=== PATIENT | female | born 1975 | race Caucasian/White ===

== ENCOUNTER 2017-11-06 15:13 | Emergency (ER) | payer OTHER, MEDICAID ==
[2017-11-06] MEDS ORDERED: FENTANYL CITRATE INJ/PF 100 MCG/2 ML AMPUL IV ONE (15:23)
--- NOTE | 2017-11-06 15:25 | ER Document Report ---
ED Medical Screen (RME) - General Chief Complaint: Possible Kidney Stone Stated Complaint: BACK PAIN Time Seen by Provider: 11/06/17 15:22 Notes: RME DISCLOSURE I have seen this patient as part of a Rapid Medical Evaluation and, if applicable, placed any initially appropriate orders. The patient will be seen and fully evaluated, including a full history and physical exam, by a provider ( in Main ED or Fast Track) when a room becomes available. 42-year-old female PMH large ovarian cysts requiring cystectomy here with complaints of right lower quadrant and back pain that started 3 days ago with some nausea as well as vomiting. She has had some slight vaginal discharge and bleeding. She has a history of ovarian cyst requiring removal and the largest one was about 9-10 cm. She feels as though this may be her ovarian cysts acting up EXAM Mild left lower quadrant tenderness Moderate right lower quadrant tenderness TRAVEL OUTSIDE OF THE [place] IN LAST 30 DAYS: No - Related Data Allergies/Adverse Reactions: No Known Allergies Allergy (Verified 11/06/17 15:14) Past Medical History Renal/ Medical History: Reports: Hx Kidney Stones. Denies: Hx Peritoneal Dialysis Psychiatric Medical History: Reports: Hx Depression Past Surgical History: Reports: Hx Appendectomy, Hx Gynecologic Surgery - D&C, Hx Hysterectomy, Hx Oral Surgery - Immunizations Immunizations up to date: Yes Hx Diphtheria, Pertussis, Tetanus Vaccination: Yes Physical Exam - Vital signs Vitals: Temp Pulse Resp BP Pulse Ox 97.7 F 94 16 97/51 L 99 11/06/17 15:19 11/06/17 15:19 11/06/17 15:19 11/06/17 15:19 11/06/17 15:19 Course - Vital Signs Vital signs: Temp Pulse Resp BP Pulse Ox 97.7 F 94 16 97/51 L 99 11/06/17 15:19 11/06/17 15:19 11/06/17 15:19 11/06/17 15:19 11/06/17 15:19
--- NOTE | 2017-11-06 15:36 | ER Document Report ---
ED Medical Screen (RME) - General Chief Complaint: Possible Kidney Stone Stated Complaint: BACK PAIN Time Seen by Provider: 11/06/17 15:22 Mode of Arrival: Wheelchair Information source: Patient Notes: Patient presents complaining of low back pain for the past 2 days. Patient denies any fever or injuries. Patient reports a history kidney stones and suspects the same today. Patient complains of lower back pain. No nausea, vomiting or diarrhea. hx: Kidney stones, chronic back pain, PTSD, depression, hysterectomy TRAVEL OUTSIDE OF THE [place] IN LAST 30 DAYS: No - Related Data Allergies/Adverse Reactions: No Known Allergies Allergy (Verified 11/06/17 15:14) Past Medical History - Social History Chew tobacco use (# tins/day): No Frequency of alcohol use: Rare Drug Abuse: None Renal/ Medical History: Reports: Hx Kidney Stones. Denies: Hx Peritoneal Dialysis Psychiatric Medical History: Reports: Hx Depression Past Surgical History: Reports: Hx Appendectomy, Hx Gynecologic Surgery - D&C, Hx Hysterectomy, Hx Oral Surgery - Immunizations Immunizations up to date: Yes Hx Diphtheria, Pertussis, Tetanus Vaccination: Yes Physical Exam - Vital signs Vitals: Temp Pulse Resp BP Pulse Ox 97.7 F 94 16 97/51 L 99 11/06/17 15:19 11/06/17 15:19 11/06/17 15:19 11/06/17 15:19 11/06/17 15:19 - Back Back: Tender - Lumbar paraspinal tenderness. No: CVA tenderness Course - Vital Signs Vital signs: Temp Pulse Resp BP Pulse Ox 97.7 F 94 16 97/51 L 99 11/06/17 15:19 11/06/17 15:19 11/06/17 15:19 11/06/17 15:19 11/06/17 15:19
--- NOTE | 2017-11-06 16:36 | ER Document Report ---
ED GI/ - General Chief Complaint: Possible Kidney Stone Stated Complaint: BACK PAIN Time Seen by Provider: 11/06/17 15:22 Mode of Arrival: Wheelchair Information source: Patient Notes: 22-year-old female presents to ED for complaint of low back pain for 2 days. She states she has a history of kidney stones and has suspects that she has the same now. She denies any nausea vomiting or any burning frequency or urgency with urination. She denies any fever or diarrhea. TRAVEL OUTSIDE OF THE [place] IN LAST 30 DAYS: No - HPI Patient complains to provider of: Other - Low back pain Onset: Other - 2 days Timing/Duration: Gradual, Worse Quality of pain: Sharp, Throbbing Severity at maximum: Severe Severity in ED: Severe Pain Level: 5 Location: Left flank, Right flank, Low back Vaginal bleeding (Compared to normal period): None Associated symptoms: denies: Nausea, Urinary hesitancy, Urinary frequency, Urinary retention, Urinary urgency, Vomiting Exacerbated by: Movement, Walking Relieved by: Denies Similar symptoms previously: Yes Recently seen / treated by doctor: No - Related Data Allergies/Adverse Reactions: No Known Allergies Allergy (Verified 11/06/17 15:14) Past Medical History - General Information source: Patient - Social History Smoking Status: Current Every Day Smoker Cigarette use (# per day): Yes - Pack per day Chew tobacco use (# tins/day): No Smoking Education Provided: Yes - 4 Minutes Frequency of alcohol use: Rare Drug Abuse: None Occupation: None Lives with: Family Family History: None Patient has suicidal ideation: No Patient has homicidal ideation: No EENT Medical History: Reports: None Neurological Medical History: Reports: None Endocrine Medical History: Reports: None Renal/ Medical History: Reports: Hx Kidney Stones Malignancy Medical History: Reports: None GI Medical History: Reports: None Musculoskeltal Medical History: Reports Hx Arthritis Psychiatric Medical History: Reports: Hx Depression, Hx Post Traumatic Stress Disorder Traumatic Medical History: Reports: None Infectious Medical History: Reports: None Past Surgical History: Reports: Hx Appendectomy, Hx Gynecologic Surgery - D&C, Hx Hysterectomy, Hx Oral Surgery - Immunizations Immunizations up to date: Yes Hx Diphtheria, Pertussis, Tetanus Vaccination: Yes Review of Systems - Review of Systems Notes: Constitutional: [PRESENT: as per HPI. ABSENT: chills, fever(s), headache(s), weight gain, weight loss] Eyes: [ABSENT: visual disturbances] Ears: [ABSENT: hearing changes] Cardiovascular: [ABSENT: chest pain, dyspnea on exertion, edema, orthropnea, palpitations] Respiratory: [ABSENT: cough, hemoptysis] Gastrointestinal: [ABSENT: abdominal pain, constipation, diarrhea, hematemesis, hematochezia, nausea, vomiting] Genitourinary: [ABSENT: dysuria, hematuria] Musculoskeletal: Back pain from rib cage down to the buttocks Integumentary: [ABSENT: rash, wounds] Neurological: [ABSENT: abnormal gait, abnormal speech, confusion, dizziness, focal weakness, syncope] Psychiatric: [ABSENT: anxiety, depression, homicidal ideation, suicidal ideation ] Endocrine: [ABSENT: cold intolerance, heat intolerance, menstrual abnormalities , polydipsia, polyuria] Hematologic/Lymphatic: [ABSENT: easy bleeding, easy bruising, lymphadenopathy] Physical Exam - Vital signs Vitals: Temp Pulse Resp BP Pulse Ox 97.7 F 94 16 97/51 L 99 11/06/17 15:19 11/06/17 15:19 11/06/17 15:19 11/06/17 15:19 11/06/17 15:19 - Notes Notes: PHYSICAL EXAMINATION: GENERAL: Well-appearing, well-nourished and in no acute distress. HEAD: Atraumatic, normocephalic. EYES: Pupils equal round and reactive to light, extraocular movements intact, conjunctiva are normal. ENT: Nares patent, oropharynx clear without exudates. Moist mucous membranes. NECK: Normal range of motion, supple without lymphadenopathy LUNGS: Breath sounds clear to auscultation bilaterally and equal. No wheezes rales or rhonchi. HEART: Regular rate and rhythm without murmurs ABDOMEN: Soft, nontender, nondistended abdomen. No guarding, no rebound. No masses appreciated. Female : deferred Musculoskeletal: Tenderness to back from rib cage down to buttocks. Specific area of tenderness. Pain is not limited to the CVA. NEUROLOGICAL: Cranial nerves grossly intact. Normal speech, normal gait. Normal sensory, motor exams PSYCH: Normal mood, normal affect. SKIN: Warm, Dry, normal turgor, no rashes or lesions noted. Course - Re-evaluation Re-evalutation: 11/07/17 02:03 Labs and x-ray discussed with patient. Patient was instructed that there was no acute changes to her back and that the stone was not in the ureter but was an actual kidney. Patient was instructed to follow-up with her primary doctor before being discharged. Patient and family verbalized understanding of instructions. - Vital Signs Vital signs: Temp Pulse Resp BP Pulse Ox 97.7 F 81 18 105/60 100 11/06/17 15:19 11/06/17 20:04 11/06/17 20:04 11/06/17 20:04 11/06/17 20:04 - Laboratory Result Diagrams: 11/06/17 16:30 11/06/17 18:04 Laboratory results interpreted by me: 11/06/17 11/06/17 16:40 18:04 Anion Gap 3 L BUN 6 L Total Protein 5.3 L Albumin 2.8 L Urine Urobilinogen 2.0 H - Diagnostic Test Radiology reviewed: Image reviewed, Reports reviewed Discharge - Discharge Clinical Impression: Low back pain Qualifiers: Chronicity: chronic Back pain laterality: bilateral Sciatica presence: without sciatica Qualified Code(s): M54.5 - Low back pain Condition: Stable Disposition: HOME, SELF-CARE Instructions: Family Physicians / Practices Additional Instructions: LOW BACK PAIN: Three out of every four people will have an episode of disabling back pain during their lifetime. Most commonly the pain is due to straining of the muscles and ligaments in the low back. Usual treatment includes: (1) Rest on a firm surface. Avoid lying on your stomach. (2) Ice pack the painful area. After a few days, gentle heat may be used intermittently to relax the area, or ice packs can be continued. (3) Medication may be needed -- muscle relaxers and antiinflammatory medicines are commonly used. (4) As the back improves, exercises are prescribed to strengthen the back and abdominal muscles. Your doctor will advise you on the proper care for your back at each stage in your recovery. You may be better in a few days -- or healing may take several weeks. If new symptoms of a "herniated disc" (radiation of pain, numbness, or tingling down the back of the leg or weakness in the leg) occur, you should be re-examined. Further testing may be necessary. Stretching Exercises for the Back The physician has recommended that you begin stretching exercises for your back. These are often used even while the back is painful. However, you should notify the physician if the activities seem to increase your pain. PELVIC TILT: Lie flat on your back with knees bent. Tighten your stomach and buttock muscles so it flattens your lower back against the floor. Hold 10 seconds. Repeat 10 times, twice daily. KNEE RAISE: Lying on the back with knees bent, raise one knee to your chest, then the other. Hold both knees against the chest 10 seconds, then lower one knee at a time. Repeat 10 times, twice daily. PARTIAL TRUNK RAISE: Lie face down, arms at your sides. Keeping your waist on the floor, use your arms raise your chest up. Support yourself on your elbows for 30 seconds. Repeat twice daily, increasing the time to two minutes as you recover. ICE PACKS: Apply ice packs frequently against the painful area. Many different schedules are recommended, such as "20 minutes on, 20 minutes off" or "one hour ice, two hours rest." If you need to work, you may need to go longer between ice treatments. You should plan to have the area ice packed AT LEAST one fourth of the time. The ice should be applied over the wrap, tape, or splint, or over a layer of cloth -- not directly against the skin. Some ice bags have a built-in cloth and can be put directly on the skin. WARM PACKS: After approximately two days, apply gentle heat (such as a heating pad or hot water bottle) for about 20 to 30 minutes about every two hours -- at least four times daily. Warmth and elevation will help you make a more rapid recovery , and will ease the pain considerably. Do not use HOT heat, and never apply heat for longer than 30 minutes. The continuous heat can invisibly damage skin and muscles -- even when no burn is seen on the surface. Damaged muscles can make you MORE sore. FOLLOW-UP CARE: If you have been referred to a physician for follow-up care, call the physician s office for an appointment as you were instructed or within the next two days. If you experience worsening or a significant change in your symptoms, notify the physician immediately or return to the Emergency Department at any time for re-evaluation. Forms: Smoking Cessation Education
[2017-11-06] MEDS ORDERED: NORMAL SALINE 1000 ML 1,000 ML IV ONE (16:37)
[2017-11-06 16:46] LABS: ABSOLUTE EOSINOPHILS # (AUTO) 0.3 10^3/uL (0.0-0.6); ABSOLUTE LYMPHOCYTES (AUTO) 2.8 10^3/uL (0.5-4.7); ABSOLUTE MONOCYTES (AUTO) 0.9 10^3/uL (0.1-1.4); ABSOLUTE NEUT (AUTO) 5.3 10^3/uL (1.7-8.2); BASOPHILS % (AUTO) 0.4 % (0-2); EOSINOPHILS % (AUTO) 2.9 % (0-6); HEMATOCRIT 39.5 % (36.0-47.0); HEMOGLOBIN 13.4 g/dL (12.0-15.5); LYMPHOCYTES % (AUTO) 29.6 % (13-45); MEAN CORPUSCULAR VOLUME 85 fl (80-97); MONOCYTES % (AUTO) 9.8 % (3-13); PLATELET COUNT 305 10^3/uL (150-450); RED BLOOD COUNT 4.63 10^6/uL (3.72-5.28); RED CELL DISTRIBUTION WIDTH 13.8 % (11.5-14.0); SEGMENTED NEUTROPHILS % (AUTO) 57.3 % (42-78); TOTAL CELLS COUNTED % (AUTO) 100 %; WHITE BLOOD COUNT 9.3 10^3/uL (4.0-10.5)
[2017-11-06 17:18] LABS: APPEARANCE,URINE CLOUDY; BILIRUBIN,URINE NEGATIVE (NEGATIVE); COLOR,URINE YELLOW; GLUCOSE, URINE NEGATIVE (NEGATIVE); KETONES,URINE NEGATIVE (NEGATIVE); LEUKOCYTE ESTERASE,URINE NEGATIVE (NEGATIVE); NITRITE,URINE NEGATIVE (NEGATIVE); PROTEIN,URINE NEGATIVE (NEGATIVE); URINE SPECIFIC GRAVITY 1.019
--- NOTE | 2017-11-06 17:24 | RADIOLOGY REPORT (SQ) ---
EXAM DESCRIPTION: CT LTD RENAL STONE PROTOCOL ON COMPLETED DATE/TIME: 11/06/2017 5:08 pm REASON FOR STUDY: back pain with hx of kidney stone COMPARISON: 05/01/2017 TECHNIQUE: CT scan of the abdomen and pelvis performed without intravenous or oral contrast. Images reviewed with lung, soft tissue, and bone windows. Reconstructed coronal and sagittal MPR images revi ewed. All images stored on PACS. All CT scanners at this facility use dose modulation, iterative reconstruction, and/or weight based d osing when appropriate to reduce radiation dose to as low as reasonably achievable (ALARA). [facility]: Dose Right [facility]: CareDose [facility]: Dose Right [facility]: Teradose 4D [facility]: [employer] RADIATION DOSE: CT Rad equipment meets quality standard of care and radiation dose reduction techniq ues were employed. CTDIvol: 12.1 mGy. DLP: 756 mGy-cm.mGy. LIMITATIONS: None. FINDINGS: LOWER CHEST: No significant findings. No nodules or infiltrates. NON-CONTRASTED LIVER, SPLEEN, ADRENALS: The liver and adrenals are normal. The spleen is prominent. PANCREAS: No masses. No peripancreatic inflammatory changes. GALLBLADDER: The gallbladder is contracted. No stones are seen. RIGHT KIDNEY AND URETER: No suspicious masses. Assessment limited by lack of IV contrast. There is a stable prominent calcification in the midportion of the kidney, possibly calcification in a calycea l diverticulum. No hydronephrosis or hydroureter. LEFT KIDNEY AND URETER: No suspicious masses. Assessment limited by lack of IV contrast. No signifi cant calcifications. No hydronephrosis or hydroureter. AORTA AND RETROPERITONEUM: No aneurysm. No retroperitoneal masses or adenopathy. BOWEL AND PERITONEAL CAVITY: No obvious masses or inflammatory changes. No free fluid. APPENDIX: Surgically absent. PELVIS, BLADDER, AND ABDOMINAL WALL:Urinary bladder is normal. Uterus is absent. BONES: Mild lumbar scoliosis. No acute abnormality. OTHER: No other significant finding. IMPRESSION: 1. The spleen is prominent but not grossly enlarged. 2. There is stable prominent calcification in the mid right kidney as described. 3. Mild scoliosis. COMMENT: Quality ID # [id number]: Final reports with documentation of one or more dose reduction techniques (e.g., Automated exposure control, adjustment of the mA and/or kV according to patient size, use of iterative reconstruction technique) TECHNICAL DOCUMENTATION: JOB ID: [id number] [employer]- All Rights Reserved Reading location - IP/workstation name: [email or web address]
[2017-11-06 18:46] LABS: BLOOD UREA NITROGEN 6 mg/dL (7-20); CALCIUM 8.5 mg/dL (8.4-10.2); GLUCOSE 100 mg/dL (75-110); POTASSIUM 4.8 mmol/L (3.6-5.0)
[2017-11-06 18:47] LABS: ALANINE AMINOTRANSFERASE 28 U/L (9-52); ALBUMIN 2.8 g/dL (3.5-5.0); ALKALINE PHOSPHATASE 45 U/L (38-126); ASPARTATE AMINO TRANSFERASE 14 U/L (14-36); BILIRUBIN,DIRECT 0.2 mg/dL (0.0-0.4); BILIRUBIN,TOTAL 0.2 mg/dL (0.2-1.3); TOTAL PROTEIN 5.3 g/dL (6.3-8.2)
[2017-11-06 18:52] LABS: CARBON DIOXIDE 29 mmol/L (22-30); CHLORIDE 105 mmol/L (98-107); SODIUM 137.3 mmol/L (137-145)
[2017-11-06 18:55] LABS: ANION GAP 3 (5-19)
[2017-11-06 20:30] VITALS: BP 105/60
== END 2017-11-06 20:30 | disposition home or self-care (01) ==
LOC: ER 15:13
DX: M54.5 Low back pain (principal); M54.9 Dorsalgia, unspecified; F17.210 Nicotine dependence, cigarettes, uncomplicated
CPT/HCPCS: 99406; 99284; 96361; 96374; 36415; 85025; 80053; 81001; 76380; J3010; J7030

== ENCOUNTER 2017-12-04 19:53 | Emergency (ER) | payer OTHER, MEDICAID ==
[2017-12-04] MEDS ORDERED: SULFAMETHOXAZOLE/TRIMETHOPRIM 800-160 MG TABLET PO ONE (21:23)
[2017-12-04] MEDS ORDERED: IBUPROFEN 600 MG TABLET PO ONE (21:23)
[2017-12-04] MEDS ORDERED: CEPHALEXIN 500 MG CAPSULE PO ONE (21:23)
--- NOTE | 2017-12-04 21:35 | ER Document Report ---
ED Extremity Problem, Lower - General Chief Complaint: Foot Injury Stated Complaint: RIGHT FOOT LACERATION Time Seen by Provider: 12/04/17 20:36 Mode of Arrival: Ambulatory Information source: Patient TRAVEL OUTSIDE OF THE [place] IN LAST 30 DAYS: No - HPI Patient complains to provider of: Injury Location: Foot Notes: Patient is here with complaints of right foot pain and redness with swelling for the last 24 hours. Proximally 5 days ago she stepped on a piece of glass while barefoot. She states that she was able to pull the piece of glass out of the bottom of her foot. Been doing fine until yesterday when she started to have pain and redness. There is been no drainage. She denies any fevers. She denies any nausea, vomiting, diarrhea. She denies any chronic medical conditions, immunosuppression, HIV, diabetes. Pain is worse with touching the area or walking. She denies any other rashes. No chest pain or shortness of breath. No numbness, tingling, weakness. She denies any other complaints at this time. - Related Data Allergies/Adverse Reactions: No Known Allergies Allergy (Verified 11/06/17 15:14) Past Medical History - Social History Smoking Status: Current Every Day Smoker Chew tobacco use (# tins/day): No Frequency of alcohol use: Occasional Drug Abuse: None Family History: None Patient has suicidal ideation: No Patient has homicidal ideation: No Renal/ Medical History: Reports: Hx Kidney Stones. Denies: Hx Peritoneal Dialysis Musculoskeltal Medical History: Reports Hx Arthritis Psychiatric Medical History: Reports: Hx Depression, Hx Post Traumatic Stress Disorder Past Surgical History: Reports: Hx Appendectomy, Hx Gynecologic Surgery - D&C, Hx Hysterectomy, Hx Oral Surgery - Immunizations Immunizations up to date: Yes Hx Diphtheria, Pertussis, Tetanus Vaccination: Yes Review of Systems - Review of Systems -: Yes All other systems reviewed and negative Physical Exam - Vital signs Vitals: Temp Pulse Resp BP Pulse Ox 97.9 F 83 18 112/65 98 12/04/17 20:06 12/04/17 20:06 12/04/17 20:06 12/04/17 20:06 12/04/17 20:06 - Notes Notes: GENERAL: alert, cooperative, nontoxic, no distress. HEAD: normocephalic, atraumatic EYES: conjunctiva pink without discharge, no external redness or swelling. EARS: no external swelling, no external redness NOSE: atraumatic, no external swelling MOUTH/THROAT: mucous membranes moist and pink NECK: soft, supple, full range of motion, no meningismus. CHEST: no distress, lungs clear and equal throughout. No wheezing, rales, rhonchi. CARDIAC: regular rate and rhythm, no murmur, normal capillary refill, normal pulses. BACK: full range of motion, no CVA tenderness. EXTREMITIES: full range of motion of all extremities. Healed puncture wound to the heel of the right foot. Mild tenderness to palpation of this area. No foreign body identified. There is mild swelling with redness and streaking up the medial aspect of the right foot. It does not go past the ankle. There is no redness or swelling to the right leg. Normal pulse and sensation. No drainable abscess identified at this time. Normal cap refill. NEURO: alert and oriented 3, no focal deficits, full range of motion of all extremities. PYSCH: appropriate mood, affect. Patient is cooperative. SKIN: pink, warm, dry, no rash. Course - Re-evaluation Re-evalutation: 12/04/17 23:33 Patient is nontoxic appearing with stable vitals. The patient stepped on a piece of glass approximately 5 days ago and now has redness and swelling with pain to the right heel and medial foot. I do not appreciate any obvious abscess. X-ray shows no obvious opaque foreign body. Explained to the patient that there is the possibility there could still be a foreign body that is not picked up on x-ray. Due to the redness I also concerned that she potentially could have an abscess. Therefore I have performed an I&D to assess for foreign body and also assess for purulent drainage. I did not find an obvious foreign body and there was no pus removed from the wound. Patient was given Bactrim and Keflex as well as pain medication here in the emergency department. She will be discharged home with prescriptions for Bactrim Keflex and [place]. She is instructed to soak her foot in warm water. Follow-up for increasing pain, fever, increasing redness, drainage or for any further concerns. There is no signs of DVT or necrotizing fasciitis. Compartments are soft. Normal neurovascular exam to the foot. The patient's emergency department workup and current diagnosis were explained to the patient and or family. Follow-up instructions were provided. Medications if prescribed were discussed. Instructions for when to return to the emergency department including specific worrisome symptoms were discussed with the patient and/or family. - Vital Signs Vital signs: Temp Pulse Resp BP Pulse Ox 97.9 F 83 18 112/65 98 12/04/17 20:06 12/04/17 20:06 12/04/17 20:06 12/04/17 20:06 12/04/17 20:06 - Diagnostic Test Radiology reviewed: Image reviewed, Reports reviewed - Right foot x-ray with no acute fractures or obvious foreign body. Discharge - Discharge Clinical Impression: Cellulitis of foot Condition: Stable Disposition: HOME, SELF-CARE Instructions: Cellulitis ([facility]), Foreign Body ([facility]), Retained Subcutaneous Foreign Object ([facility]) Additional Instructions: Take medications as prescribed. Soak your foot in warm soapy water. Follow-up if not improving in the next 3 days, sooner for increasing pain, fever, increasing redness, drainage, numbness, tingling, weakness, any further concerns. There was no obvious foreign body identified on today's exam, it is still possible that a small foreign body that is not seen on x-ray could still be in place. It is important for you to follow-up if symptoms do not improve. The medication you were prescribed today may cause drowsiness. Do not drive or operate heavy machinery while taking this medication. Prescriptions: Cephalexin Monohydrate [Keflex 500 mg Capsule] 500 mg PO Q6H #40 capsule Hydrocodone/Acetaminophen [[place] 5-325 mg Tablet] 2 tab PO Q6H PRN #12 tab PRN Reason: Sulfamethoxazole/Trimethoprim [Bactrim Ds Tablet] 1 each PO BID #20 tablet Forms: Smoking Cessation Education
--- NOTE | 2017-12-04 21:56 | RADIOLOGY REPORT (SQ) ---
EXAM DESCRIPTION: FOOT RIGHT COMPLETE COMPLETED DATE/TIME: 12/04/2017 9:06 pm REASON FOR STUDY: stepped on glass COMPARISON: None. NUMBER OF VIEWS: Three views. TECHNIQUE: AP, lateral and oblique radiographic images acquired of the right foot. LIMITATIONS: None. FINDINGS: MINERALIZATION: Normal. BONES: No acute fracture or dislocation. No worrisome bone lesions. JOINTS: No effusions. SOFT TISSUES: No soft tissue swelling. No radiopaque foreign body. OTHER: No other significant finding. IMPRESSION: No fracture or radiopaque foreign body. TECHNICAL DOCUMENTATION: JOB ID: [id number] [employer]- All Rights Reserved Reading location - IP/workstation name: [email or web address]
[2017-12-04] MEDS ORDERED: HYDROCODONE/ACETAMINOPHEN 5-325 MG TABLET PO ONE (22:23)
[2017-12-04 23:47] VITALS: BP 109/61
== END 2017-12-04 23:47 | disposition home or self-care (01) ==
LOC: ER 19:53
DX: L03.115 Cellulitis of right lower limb (principal); F17.200 Nicotine dependence, unspecified, uncomplicated; Z87.442 Personal history of urinary calculi; Z90.710 Acquired absence of both cervix and uterus
CPT/HCPCS: 99283

== ENCOUNTER 2018-02-11 21:49 | Emergency (ER) | payer MEDICAID ==
[2018-02-11 22:00] VITALS: BP 104/67
[2018-02-11] MEDS ORDERED: LIDOCAINE 1% INJ-PF (10 MG/ML) 30 ML SDV INJ ONE (23:44)
--- NOTE | 2018-02-11 23:49 | ER Document Report ---
HPI - HPI Pain Level: 5 Notes: Patient is a 42-year-old female with no significant past medical history who presents to the ED complaining of a possible abscess to her right axilla times 1 week. Patient states that she was able to get some purulent fluid out of it couple days ago. Patient states that she has noticed that has been getting larger and more painful. Pain does not radiate. She still eating and drinking without difficulties. Patient does shave in that area. Denies any history of MRSA. Denies any drug allergies. Denies any headache, fever, neck pain, URI, sore throat, chest pain, palpitations, syncope, cough, shortness of breath, wheeze, dyspnea, abdominal pain, nausea/vomiting/diarrhea, dysuria, hematuria. - ROS Systems Reviewed and Negative: Yes All other systems reviewed and negative - REPRODUCTIVE Reproductive: DENIES: : Past Medical History - Social History Smoking Status: Unknown if Ever Smoked Family History: None Renal/ Medical History: Reports: Hx Kidney Stones. Denies: Hx Peritoneal Dialysis Musculoskeltal Medical History: Reports Hx Arthritis Psychiatric Medical History: Reports: Hx Depression, Hx Post Traumatic Stress Disorder Past Surgical History: Reports: Hx Appendectomy, Hx Gynecologic Surgery - D&C, Hx Hysterectomy, Hx Oral Surgery - Immunizations Immunizations up to date: Yes Hx Diphtheria, Pertussis, Tetanus Vaccination: Yes Vertical Provider Document - CONSTITUTIONAL Agree With Documented VS: Yes Notes: PHYSICAL EXAMINATION: GENERAL: Well-appearing, well-nourished and in no acute distress. LUNGS: Breath sounds clear to auscultation bilaterally and equal. No wheezes rales or rhonchi. HEART: Regular rate and rhythm without murmurs, rubs, gallops. Musculoskeletal: Rt arm: FROM to passive/active. Strength 5+/5. N/V intact distal. No bony tenderness. Extremities: No cyanosis, clubbing, or edema b/l. Peripheral pulses 2+. Capillary refill less than 3 seconds. NEUROLOGICAL: Normal speech, normal gait. Normal sensory, motor exams PSYCH: Normal mood, normal affect. SKIN: Rt axilla: + induration and tenderness approx 3"x2" area with surrounding erythema. Minimal fluctance to palpation. No streaks or purulence. - INFECTION CONTROL TRAVEL OUTSIDE OF THE [place] IN LAST 30 DAYS: No Course - Re-evaluation Re-evalutation: 02/12/18 00:40 Patient is an afebrile, well-hydrated, 42-year-old female who presents to the ED with an abscess/cellulitis to her right axilla. Vitals are acceptable. PE is otherwise unremarkable. I&D was performed successfully without any complications. Patient tolerated procedure well without any complications. Wound culture was obtained. Wound dressing was placed and wound instructions reviewed. No other labs or imaging warranted at this time based on H&P. Patient has no significant tachycardia, tachypnea, or hypoxia. First dose of Bactrim and Keflex given p.o. today. Patient is nontoxic-appearing. Patient does not have the symptomatology or presentation consistent for sepsis, necrotizing fasciitis, or other systemic emergent condition at this time. I will send her home with prescription for Keflex and Bactrim as well. Recheck with your PCM in 2-3 days. Return to the ED with any worsening/concerning symptoms otherwise as reviewed discharge. Patient is in agreement. - Vital Signs Vital signs: Temp Pulse Resp BP Pulse Ox 98.3 F 105 H 16 104/67 93 02/11/18 21:58 02/11/18 21:58 02/11/18 21:58 02/11/18 21:58 02/11/18 21:58 Procedures - Incision and Drainage Right Arm Time completed: 00:35 - pt tolerated proc well, no complications, wound cx obtained Type: Simple Anesthetic type: 1% Lidocaine mL's of anesthetic: 8 Blade size: 11 I&D procedure: Iodoform packing placed, Sterile dressing applied, Other - chlorhexadine/saline Incision Method: Incision made by scalpel Amount/type of drainage: small purulent/bloody Discharge - Discharge Clinical Impression: Abscess, Cellulitis of axilla, right Condition: Stable Disposition: HOME, SELF-CARE Instructions: Post Incision and Drainage, Cephalexin ([facility]), Trimethoprim-Sulfa ([facility]), Abscess ([facility]) Additional Instructions: Do not shower or bathe for 24 hours. After 24 hours she may shower but no submersion of the wound under water. Keep the original dressing on the wound for 24 hours unless the drainage soaks through. Change the dressing daily thereafter and use a small amount of triple antibiotic ointment over the open wound. Return to the ED and/or your PCM in 2-3 days for recheck and continue direction for wound packing. Monitor for any signs of worsening pain or redness , streaks, and/or fever. Return to the ED if noticing any of the above symptoms or as needed. Take medications as directed. Prescriptions: Cephalexin Monohydrate [Keflex 500 mg Capsule] 500 mg PO BID #20 capsule Sulfamethoxazole/Trimethoprim [Bactrim Ds Tablet] 1 each PO BID #20 tablet Referrals: ROSELIA BROWN, [facility] [Primary Care Provider] - 02/15/18
[2018-02-12] MEDS ORDERED: CEPHALEXIN 500 MG CAPSULE PO ONE (00:43)
[2018-02-12] MEDS ORDERED: SULFAMETHOXAZOLE/TRIMETHOPRIM 800-160 MG TABLET PO ONE (00:43)
[2018-02-12] MEDS ORDERED: HYDROCODONE/ACETAMINOPHEN 5-325 MG (6 TAB/ER DISP) PO PRN (00:43)
== END 2018-02-12 01:03 | disposition home or self-care (01) ==
LOC: ER 21:49
PROC: 0H9BXZZ Drainage of Right Upper Arm Skin, External Approach (ICD-10-PCS; principal; 2018-02-11)
DX: L02.411 Cutaneous abscess of right axilla (principal); Z87.442 Personal history of urinary calculi; Z90.710 Acquired absence of both cervix and uterus
CPT/HCPCS: 99283; 87070; 87205; 87075; 87077; 87186; 10060; A6266; J3490 ×2

== ENCOUNTER 2019-02-24 10:43 | Emergency (ER) | payer MEDICAID ==
[2019-02-24] MEDS ORDERED: KETOROLAC TROMETHAMINE 60 MG/2 ML SDV IM ONE (12:45)
[2019-02-24 13:12] LABS: ABSOLUTE EOSINOPHILS # (AUTO) 0.2 10^3/uL (0.0-0.6); ABSOLUTE LYMPHOCYTES (AUTO) 2.4 10^3/uL (0.5-4.7); ABSOLUTE MONOCYTES (AUTO) 0.8 10^3/uL (0.1-1.4); ABSOLUTE NEUT (AUTO) 4.2 10^3/uL (1.7-8.2); BASOPHILS % (AUTO) 0.3 % (0-2); EOSINOPHILS % (AUTO) 2.1 % (0-6); HEMATOCRIT 34.3 % (36.0-47.0); LYMPHOCYTES % (AUTO) 31.3 % (13-45); MEAN CORPUSCULAR HEMOGLOBIN 29.8 pg (27.0-33.4); MEAN CORPUSCULAR HGB CONC 35.1 g/dL (32.0-36.0); MEAN CORPUSCULAR VOLUME 85 fl (80-97); MONOCYTES % (AUTO) 11.2 % (3-13); PLATELET COUNT 313 10^3/uL (150-450); RED BLOOD COUNT 4.04 10^6/uL (3.72-5.28); SEGMENTED NEUTROPHILS % (AUTO) 55.1 % (42-78); TOTAL CELLS COUNTED % (AUTO) 100 %; WHITE BLOOD COUNT 7.6 10^3/uL (4.0-10.5)
[2019-02-24 13:34] LABS: ALANINE AMINOTRANSFERASE 20 U/L (9-52); ALBUMIN 3.3 g/dL (3.5-5.0); ALKALINE PHOSPHATASE 64 U/L (38-126); ASPARTATE AMINO TRANSFERASE 21 U/L (14-36); BILIRUBIN,DIRECT 0.2 mg/dL (0.0-0.4); BILIRUBIN,TOTAL 0.2 mg/dL (0.2-1.3); BLOOD UREA NITROGEN 7 mg/dL (7-20); CALCIUM 8.9 mg/dL (8.4-10.2); CARBON DIOXIDE 31 mmol/L (22-30); CHLORIDE 104 mmol/L (98-107); GLUCOSE 106 mg/dL (75-110); POTASSIUM 4.3 mmol/L (3.6-5.0); SODIUM 139.2 mmol/L (137-145); TOTAL PROTEIN 5.9 g/dL (6.3-8.2)
[2019-02-24 13:48] LABS: ANION GAP 4 (5-19)
--- NOTE | 2019-02-24 14:13 | ER Document Report ---
HPI - HPI Time Seen by Provider: 02/24/19 12:30 Pain Level: 4 Notes: Patient is a 43-year-old female presented to the emergency department chief complaint of bilateral lower extremity swelling and edema. Patient denies any recent trauma to the area, reports that she does not work so she has not been on her feet a lot lately. Patient has never had a DVT, does not smoke, does not take any hormone replacement and has had no recent travel. Patient reports that the swelling causes her discomfort and pain. Patient reports that the swelling does come and go. - REPRODUCTIVE Reproductive: DENIES: : Past Medical History - General Information source: Patient - Social History Smoking Status: Current Every Day Smoker Chew tobacco use (# tins/day): No Frequency of alcohol use: None Drug Abuse: None Family History: None Patient has suicidal ideation: No Patient has homicidal ideation: No Renal/ Medical History: Reports: Hx Kidney Stones. Denies: Hx Peritoneal Dialysis Musculoskeletal Medical History: Reports Hx Arthritis Psychiatric Medical History: Reports: Hx Depression, Hx Post Traumatic Stress Disorder Past Surgical History: Reports: Hx Appendectomy, Hx Gynecologic Surgery - D&C, Hx Hysterectomy, Hx Oral Surgery - Immunizations Immunizations up to date: Yes Hx Diphtheria, Pertussis, Tetanus Vaccination: Yes Vertical Provider Document - CONSTITUTIONAL Notes: PHYSICAL EXAMINATION: GENERAL: Well-appearing, well-nourished and in no acute distress. HEAD: Atraumatic, normocephalic. EYES: Pupils equal round and reactive to light, extraocular movements intact, conjunctiva are normal. ENT: Nares patent, oropharynx clear without exudates. Moist mucous membranes. NECK: Normal range of motion, supple without lymphadenopathy LUNGS: Breath sounds clear to auscultation bilaterally and equal. No wheezes rales or rhonchi. HEART: Regular rate and rhythm without murmurs ABDOMEN: Soft, nontender, nondistended abdomen. No guarding, no rebound. No masses appreciated. Female : deferred Musculoskeletal: Normal range of motion, 1+ pitting edema to bilateral lower extremities from the knees down to the feet. No cyanosis. NEUROLOGICAL: Cranial nerves grossly intact. Normal speech, normal gait. Normal sensory, motor exams PSYCH: Normal mood, normal affect. SKIN: Warm, Dry, normal turgor, no rashes or lesions noted. - INFECTION CONTROL TRAVEL OUTSIDE OF THE [place] IN LAST 30 DAYS: No Course - Re-evaluation Re-evalutation: Patient appears well, nontoxic, vital signs are within normal limits. Labs were obtained on this patient, CBC and CMP are unremarkable. Patient now reporting that she actually has had peripheral edema in the past and she used to take hydrochlorothiazide. Patient reports that she stopped taking her medication approximately 2 weeks ago because she ran out. Patient now reporting that this is actually when her symptoms of peripheral edema started. Patient will be given a refill of her hydrochlorothiazide. Patient encouraged to please follow- up with her primary care provider for further management of her chronic peripheral edema. - Laboratory Result Diagrams: 02/24/19 13:05 02/24/19 13:05 Laboratory results interpreted by me: 02/24/19 02/24/19 13:05 13:05 Hct 34.3 L Carbon Dioxide 31 H Anion Gap 4 L Total Protein 5.9 L Albumin 3.3 L Discharge - Discharge Clinical Impression: Peripheral edema Condition: Stable Disposition: HOME, SELF-CARE Additional Instructions: Your lab work today was unremarkable. I have refilled your hydrochlorothiazide as discussed. Please wear compression stockings that you can buy ove [id number] at the pharmacy or drugstore. Watch your salt intake and drink plenty of fluids. Take medication as prescribed. Prescriptions: Hydrochlorothiazide 12.5 mg PO DAILY #30 tablet
[2019-02-24 14:22] VITALS: BP 108/64
== END 2019-02-24 14:22 | disposition home or self-care (01) ==
LOC: ER 10:43
DX: R60.9 Edema, unspecified (principal); F17.200 Nicotine dependence, unspecified, uncomplicated; Z87.442 Personal history of urinary calculi
CPT/HCPCS: 99283; 96372; 36415; 85025; 80053; J1885

== ENCOUNTER 2019-06-19 20:06 | Emergency (ER) | payer MEDICAID ==
--- NOTE | 2019-06-19 21:03 | ER Document Report ---
ED Medical Screen (RME) - General Chief Complaint: Flank Pain Stated Complaint: FLANK PAIN Time Seen by Provider: 06/19/19 20:59 Primary Care Provider: ODALIS KELLER FNP-BC [Primary Care Provider] - Follow up as needed Mode of Arrival: Ambulatory Information source: Patient Notes: 43-year-old female presented to ED for complaint of abdominal and back pain. She states she feels like she is very bloated. She states that first she thought it was just because she had ate too much and it would go down and she would feel better but then it comes back and she feels like she is little gas and blows up. He states this is been going on up and down for about 3 days. She denies nausea and vomiting. She states she does have a little smears but no real stools in the last 3 days. She states she has had a hysterectomy so she does not have menstrual cycles. I have greeted and performed a rapid initial assessment of this patient. A comprehensive ED assessment and evaluation of the patient, analysis of test results and completion of medical decision making process will be conducted by an additional ED providers. TRAVEL OUTSIDE OF THE [place] IN LAST 30 DAYS: No - Related Data Allergies/Adverse Reactions: No Known Allergies Allergy (Verified 02/24/19 10:44) Past Medical History Renal/ Medical History: Reports: Hx Kidney Stones. Denies: Hx Peritoneal Dialysis Musculoskeltal Medical History: Reports Hx Arthritis Psychiatric Medical History: Reports: Hx Depression, Hx Post Traumatic Stress Disorder Past Surgical History: Reports: Hx Appendectomy, Hx Gynecologic Surgery - D&C, Hx Hysterectomy, Hx Oral Surgery - Immunizations Immunizations up to date: Yes Hx Diphtheria, Pertussis, Tetanus Vaccination: Yes Physical Exam - Vital signs Vitals: Temp Pulse Resp BP Pulse Ox 97.8 F 108 H 18 133/66 H 97 06/19/19 20:35 06/19/19 20:35 06/19/19 20:35 06/19/19 20:35 06/19/19 20:35 Course - Vital Signs Vital signs: Temp Pulse Resp BP Pulse Ox 97.8 F 108 H 18 133/66 H 97 06/19/19 20:35 06/19/19 20:35 06/19/19 20:35 06/19/19 20:35 06/19/19 20:35 Doctor's Discharge - Discharge Referrals: ODALIS KELLER, BUSINESS AFFAIRS MANAGER-BC [Primary Care Provider] - Follow up as needed
[2019-06-19] MEDS ORDERED: MAGNESIUM CITRATE 296 ML BOTTLE PO ONE (21:27)
--- NOTE | 2019-06-19 22:03 | RADIOLOGY REPORT (SQ) ---
EXAM DESCRIPTION: [facility]: XR ABDOMEN SUPINE AND ERECT WITH CHEST (ABD ACUTE SERIES) Views: 3 CLINICAL HISTORY: 43 years Female, Abdominal and back pain. COMPARISON: CT 11/06/2017 FINDINGS: AP Chest: Lungs are clear without infiltrate, effusion, pneumothorax. Mediastinum is within normal limits for positioning. No acute bone findings. Supine and erect AP abdomen: There is moderate proximal colonic fecal retention. No small bowel distention. No pneumatosis. No air-fluid levels or free air. Right renal cortical calcifications are again noted, as seen on CT 11/06/2017 IMPRESSION: 1. Moderate fecal retention, but no bowel distention 2. No acute pulmonary findings
[2019-06-19 22:04] LABS: ABSOLUTE EOSINOPHILS # (AUTO) 0.3 10^3/uL (0.0-0.6); ABSOLUTE MONOCYTES (AUTO) 1.1 10^3/uL (0.1-1.4); ABSOLUTE NEUT (AUTO) 9.6 10^3/uL (1.7-8.2); APPEARANCE,URINE CLOUDY; BASOPHILS % (AUTO) 0.2 % (0-2); BILIRUBIN,URINE NEGATIVE (NEGATIVE); COLOR,URINE YELLOW; EOSINOPHILS % (AUTO) 2.2 % (0-6); GLUCOSE, URINE NEGATIVE (NEGATIVE); HEMATOCRIT 36.3 % (36.0-47.0); HEMOGLOBIN 12.2 g/dL (12.0-15.5); KETONES,URINE NEGATIVE (NEGATIVE); LEUKOCYTE ESTERASE,URINE NEGATIVE (NEGATIVE); LYMPHOCYTES % (AUTO) 21.3 % (13-45); MEAN CORPUSCULAR HEMOGLOBIN 27.9 pg (27.0-33.4); MEAN CORPUSCULAR HGB CONC 33.6 g/dL (32.0-36.0); MEAN CORPUSCULAR VOLUME 83 fl (80-97); MONOCYTES % (AUTO) 8.2 % (3-13); NITRITE,URINE NEGATIVE (NEGATIVE); PLATELET COUNT 287 10^3/uL (150-450); PROTEIN,URINE NEGATIVE (NEGATIVE); RED BLOOD COUNT 4.37 10^6/uL (3.72-5.28); RED CELL DISTRIBUTION WIDTH 13.3 % (11.5-14.0); SEGMENTED NEUTROPHILS % (AUTO) 68.1 % (42-78); TOTAL CELLS COUNTED % (AUTO) 100 %; URINE SPECIFIC GRAVITY 1.016; UROBILINOGEN,URINE NEGATIVE mg/dL (<2.0); WHITE BLOOD COUNT 14.1 10^3/uL (4.0-10.5)
[2019-06-19 22:34] LABS: ALBUMIN 3.8 g/dL (3.5-5.0); ALKALINE PHOSPHATASE 82 U/L (38-126); ANION GAP 8 (5-19); ASPARTATE AMINO TRANSFERASE 36 U/L (14-36); BILIRUBIN,DIRECT 0.2 mg/dL (0.0-0.4); BILIRUBIN,TOTAL 0.2 mg/dL (0.2-1.3); BLOOD UREA NITROGEN 19 mg/dL (7-20); CARBON DIOXIDE 32 mmol/L (22-30); CHLORIDE 99 mmol/L (98-107); GLUCOSE 107 mg/dL (75-110); POTASSIUM 4.4 mmol/L (3.6-5.0); TOTAL PROTEIN 6.6 g/dL (6.3-8.2)
[2019-06-19] MEDS ORDERED: KETOROLAC TROMETHAMINE INJ/PF 30 MG/1 ML SDV IV ONE (23:50)
[2019-06-20] MEDS ORDERED: KETOROLAC TROMETHAMINE INJ/PF 30 MG/1 ML SDV IM ONE (00:12)
--- NOTE | 2019-06-20 01:30 | RADIOLOGY REPORT (SQ) ---
EXAM DESCRIPTION: [facility]: US ABDOMEN LIMITED CLINICAL HISTORY: 43 years Female; RUQ pain TECHNIQUE: Right upper quadrant ultrasound was performed. COMPARISON: CT abdomen 11/06/2017. No previous ultrasound. FINDINGS: Pancreas: Visualized portions are unremarkable. Liver: 17 cm long. No ductal distention. Portal venous flow is hepatopedal, normal. Gallbladder: Shadowing calculi. Wall 2 mm. No Das sign. No pericholecystic fluid. Common bile duct: 7-10 mm. Distal portion not visualized Right kidney: 12.3 x 4.5 x 5.5 cm. No hydronephrosis. IMPRESSION: 1. Cholelithiasis. No sonographic evidence for acute cholecystitis 2. Somewhat distended common bile duct, although distal portion could not be visualized. Cannot exclude a distal common bile duct stone.
--- NOTE | 2019-06-20 02:06 | ER Document Report ---
ED General - General Chief Complaint: Lower Abdominal Pain Stated Complaint: FLANK PAIN Time Seen by Provider: 06/19/19 20:59 Primary Care Provider: NIEVES DAVIS MD [ACTIVE STAFF] - Follow up as needed ODALIS KELLER FNP- [NO LOCAL MD] - Follow up as needed Mode of Arrival: Ambulatory Notes: RME NOTE: 43-year-old female presented to ED for complaint of abdominal and back pain. She states she feels like she is very bloated. She states that first she thought it was just because she had ate too much and it would go down and she would feel better but then it comes back and she feels like she is little gas and blows up. He states this is been going on up and down for about 3 days. She denies nausea and vomiting. She states she does have a little smears but no real stools in the last 3 days. She states she has had a hysterectomy so she does not have menstrual cycles. MY HPI: Upon my assessment patient is complaining of right upper abdominal pain. Patient's has been treated with magnesium citrate for constipation by E provider. Patient voices she has had a small bowel movement. States she does feel slightly better but continues with right upper abdominal pain. Patient's denying any nausea, vomiting, diarrhea. She is denying any dysuria or vaginal discharge. Patient is denying any fevers. Patient voices she was taking MiraLAX approximately 3 days ago for what she thought was constipation. States she has not been taking any since. TRAVEL OUTSIDE OF THE [place] IN LAST 30 DAYS: No - Related Data Allergies/Adverse Reactions: No Known Allergies Allergy (Verified 02/24/19 10:44) Past Medical History - General Information source: Patient - Social History Smoking Status: Current Every Day Smoker Chew tobacco use (# tins/day): No Frequency of alcohol use: Social Drug Abuse: None Family History: None Patient has suicidal ideation: No Patient has homicidal ideation: No Renal/ Medical History: Reports: Hx Kidney Stones. Denies: Hx Peritoneal Dialysis Musculoskeletal Medical History: Reports Hx Arthritis Psychiatric Medical History: Reports: Hx Depression, Hx Post Traumatic Stress Disorder Past Surgical History: Reports: Hx Appendectomy, Hx Gynecologic Surgery - D&C, Hx Hysterectomy, Hx Oral Surgery - Immunizations Immunizations up to date: Yes Hx Diphtheria, Pertussis, Tetanus Vaccination: Yes Review of Systems - Review of Systems Constitutional: denies: Fever EENT: No symptoms reported Cardiovascular: No symptoms reported Respiratory: No symptoms reported Gastrointestinal: See HPI Genitourinary: No symptoms reported Female Genitourinary: No symptoms reported Musculoskeletal: See HPI Skin: No symptoms reported Hematologic/Lymphatic: No symptoms reported Neurological/Psychological: No symptoms reported Physical Exam - Vital signs Vitals: Temp Pulse Resp BP Pulse Ox 97.8 F 108 H 18 133/66 H 97 06/19/19 20:35 06/19/19 20:35 06/19/19 20:35 06/19/19 20:35 06/19/19 20:35 - Notes Notes: GENERAL: Alert, interacts well. No acute distress. HEAD: Normocephalic, atraumatic. EYES: Pupils equal, round, and reactive to light. Extraocular movements intact. ENT: Oral mucosa moist, tongue midline. NECK: Full range of motion. Supple. Trachea midline. LUNGS: Clear to auscultation bilaterally, no wheezes, rales, or rhonchi. No respiratory distress. HEART: Regular rate and rhythm. No murmur ABDOMEN: Soft, right upper quadrant abdominal pain noted, otherwise abdominal exam benign. Non-distended. Bowel sounds present in all 4 quadrants. EXTREMITIES: Moves all 4 extremities spontaneously. No edema, normal radial and dorsalis pedis pulses bilaterally. No cyanosis. BACK: no cervical, thoracic, lumbar midline tenderness. No saddle anesthesia, normal distal neurovascular exam. No CVA tenderness noted bilaterally. NEUROLOGICAL: Alert and oriented x3. Normal speech. cranial nerves II through XII grossly intact. PSYCH: Normal affect, normal mood. SKIN: Warm, dry, normal turgor. No rashes or lesions noted. Course - Re-evaluation Re-evalutation: Laboratory 06/19/19 06/19/19 06/19/19 21:30 21:30 21:30 WBC 14.1 H RBC 4.37 Hgb 12.2 Hct 36.3 MCV 83 MCH 27.9 MCHC 33.6 RDW 13.3 Plt Count 287 Lymph % (Auto) 21.3 [place] % (Auto) 8.2 Eos % (Auto) 2.2 Baso % (Auto) 0.2 Absolute Neuts (auto) 9.6 H Absolute Lymphs (auto) 3.0 Absolute Monos (auto) 1.1 Absolute Eos (auto) 0.3 Absolute Basos (auto) 0.0 Seg Neutrophils % 68.1 Sodium 138.7 Potassium 4.4 Chloride 99 Carbon Dioxide 32 H Anion Gap 8 BUN 19 Creatinine 0.72 Est GFR ( Amer) > 60 Est GFR (MDRD) Non-Af > 60 Glucose 107 Calcium 9.0 Total Bilirubin 0.2 Direct Bilirubin 0.2 Neonat Total Bilirubin Not Reportable Neonat Direct Bilirubin Not Reportable Neonat Indirect Bili Not Reportable AST 36 ALT 35 Alkaline Phosphatase 82 Total Protein 6.6 Albumin 3.8 Lipase Urine Color YELLOW Urine Appearance CLOUDY Urine pH 6.0 Ur Specific [place] 1.016 Urine Protein NEGATIVE Urine Glucose (UA) NEGATIVE Urine Ketones NEGATIVE Urine Blood NEGATIVE Urine Nitrite NEGATIVE Urine Bilirubin NEGATIVE Urine Urobilinogen NEGATIVE Ur Leukocyte Esterase NEGATIVE Urine WBC (Auto) 3 Urine RBC (Auto) 1 Urine Bacteria (Auto) TRACE Squamous Epi Cells Auto 17 Urine Mucus (Auto) RARE Urine Ascorbic Acid NEGATIVE 06/19/19 21:30 WBC RBC Hgb Hct MCV MCH MCHC RDW Plt Count Lymph % (Auto) [place] % (Auto) Eos % (Auto) Baso % (Auto) Absolute Neuts (auto) Absolute Lymphs (auto) Absolute Monos (auto) Absolute Eos (auto) Absolute Basos (auto) Seg Neutrophils % Sodium Potassium Chloride Carbon Dioxide Anion Gap BUN Creatinine Est GFR ( Amer) Est GFR (MDRD) Non-Af Glucose Calcium Total Bilirubin Direct Bilirubin Neonat Total Bilirubin Neonat Direct Bilirubin Neonat Indirect Bili AST ALT Alkaline Phosphatase Total Protein Albumin Lipase 70.5 Urine Color Urine Appearance Urine pH Ur Specific [place] Urine Protein Urine Glucose (UA) Urine Ketones Urine Blood Urine Nitrite Urine Bilirubin Urine Urobilinogen Ur Leukocyte Esterase Urine WBC (Auto) Urine RBC (Auto) Urine Bacteria (Auto) Squamous Epi Cells Auto Urine Mucus (Auto) Urine Ascorbic Acid Acute Abdomen Series 06/19/19 21:04 IMPRESSION: 1. Moderate fecal retention, but no bowel distention 2. No acute pulmonary findings Abdomen Ultrasound 06/19/19 23:49 IMPRESSION: 1. Cholelithiasis. No sonographic evidence for acute cholecystitis 2. Somewhat distended common bile duct, although distal portion could not be visualized. Cannot exclude a distal common bile duct stone. Discussed with patient at length ultrasound results. Also discussed x-ray res ults which showed constipation. Discussed she should follow-up outpatient for elective removal of her gallbladder. Close return precautions discussed. Upon repeat assessment patient voices she overall feels a lot better after Toradol. States she has had yet another bowel movement in the emergency department and continues to feel better. Discussed close follow-up with primary care provider with close return precautions. Patient stable for discharge. - Vital Signs Vital signs: Temp Pulse Resp BP Pulse Ox 98.0 F 96 18 130/70 H 97 06/20/19 02:31 06/20/19 02:31 06/20/19 02:31 06/20/19 02:31 06/19/19 20:35 - Laboratory Result Diagrams: 06/19/19 21:30 06/19/19 21:30 Laboratory results interpreted by me: 06/19/19 06/19/19 21:30 21:30 WBC 14.1 H Absolute Neuts (auto) 9.6 H Carbon Dioxide 32 H Discharge - Discharge Clinical Impression: Constipation Qualifiers: Constipation type: other constipation type Qualified Code(s): K59.09 - Other constipation Cholelithiasis Qualifiers: Cholelithiasis location: other site Biliary obstruction: without biliary obstruction Qualified Code(s): K80.80 - Other cholelithiasis without obstruction Condition: Stable Disposition: HOME, SELF-CARE Instructions: Constipation ([facility]), Gallbladder Disease ([facility]) Additional Instructions: As we discussed your testing reveals signs of constipation. Please make sure he continue to take the MiraLAX as we discussed. Your ultrasound also shows that you have gallstones. Please follow-up with surgery, phone numbers to be provided in this packet. Please return to the emergency room for any concerns. Forms: Return to Work Referrals: ODALIS KELLER FNP-BC [NO LOCAL MD] - Follow up as needed NIEVES DAVIS MD [ACTIVE STAFF] - Follow up as needed
[2019-06-20 02:33] VITALS: BP 130/70
== END 2019-06-20 02:31 | disposition home or self-care (01) ==
LOC: ER 20:06
DX: K80.80 Other cholelithiasis without obstruction (principal); R10.11 Right upper quadrant pain; R10.30 Lower abdominal pain, unspecified; M54.9 Dorsalgia, unspecified; F17.200 Nicotine dependence, unspecified, uncomplicated; Z87.442 Personal history of urinary calculi; Z90.710 Acquired absence of both cervix and uterus
CPT/HCPCS: 36415; 83690; 85025; 80053; 81001; 74022; 76705; J3490; J1885; 96372; 99284

== ENCOUNTER 2019-07-07 08:13 | Day surgery (SDC) | payer MEDICAID ==
[2019-07-01 09:14] LABS: HEMATOCRIT 41.7 % (36.0-47.0); HEMOGLOBIN 14.6 g/dL (12.0-15.5); MEAN CORPUSCULAR HEMOGLOBIN 28.6 pg (27.0-33.4); MEAN CORPUSCULAR HGB CONC 35.2 g/dL (32.0-36.0); MEAN CORPUSCULAR VOLUME 82 fl (80-97); PLATELET COUNT 437 10^3/uL (150-450); RED BLOOD COUNT 5.12 10^6/uL (3.72-5.28); RED CELL DISTRIBUTION WIDTH 13.5 % (11.5-14.0); WHITE BLOOD COUNT 10.5 10^3/uL (4.0-10.5)
[2019-07-01 09:43] LABS: ALBUMIN 4.5 g/dL (3.5-5.0); ALKALINE PHOSPHATASE 70 U/L (38-126); AMYLASE 54 U/L (30-110); ANION GAP 10 (5-19); ASPARTATE AMINO TRANSFERASE 17 U/L (14-36); BILIRUBIN,DIRECT 0.1 mg/dL (0.0-0.4); BILIRUBIN,TOTAL 0.5 mg/dL (0.2-1.3); BLOOD UREA NITROGEN 15 mg/dL (7-20); CALCIUM 9.9 mg/dL (8.4-10.2); CARBON DIOXIDE 31 mmol/L (22-30); CHLORIDE 99 mmol/L (98-107); GLUCOSE 118 mg/dL (75-110); POTASSIUM 4.9 mmol/L (3.6-5.0); TOTAL PROTEIN 8.2 g/dL (6.3-8.2)
[~2019-07-07 08:13] MED LIST: ACETAMINOPHEN 325 MG TABLET PO PRN; CEFAZOLIN SODIUM 1 GM in DEXTROSE 5%-WATER 50 ML IV PRN; LACTATED RINGERS 1000 ML IV PRN; LIDOCAINE 0.5% INJ-PF (5 MG/ML) 50 ML SDV SUBCUT PRN; METRONIDAZOLE 500 MG/NS RTU 500 MG/100 ML RTUPB IV ONE; METRONIDAZOLE 500 MG/NS RTU 500 MG/100 ML RTUPB IV PRN
[2019-07-07] MEDS ORDERED: BUPIVACAINE HCL 0.25 % INJ/PF (2.5 MG/1 ML) 30 ML VIAL ONE (08:16)
[2019-07-07] MEDS ORDERED: MIDAZOLAM 2 MG/2 ML INJ ONE (09:18)
[2019-07-07] MEDS ORDERED: PROPOFOL INJ 200 MG/20 ML VIAL IV ONE (09:18)
[2019-07-07] MEDS ORDERED: FENTANYL CITRATE INJ/PF 100 MCG/2 ML AMPUL ONE ×2 (09:18→11:07)
[2019-07-07] MEDS ORDERED: MEPERIDINE HCL/PF INJ 25 MG/1 ML DISP.SYRIN IV PRN (11:34)
[2019-07-07] MEDS ORDERED: OXYCODONE-ACETAMINOPHEN 5-325 MG TABLET PO PRN ×3 (11:34→12:17)
[2019-07-07] MEDS ORDERED: FENTANYL CITRATE INJ/PF 100 MCG/2 ML AMPUL IV PRN ×3 (11:34)
[2019-07-07] MEDS ORDERED: PROMETHAZINE HCL INJ 25 MG/1 ML VIAL IV PRN (11:34)
[2019-07-07] MEDS ORDERED: ONDANSETRON HCL INJ/PF 4 MG/2 ML SDV IV PRN (11:34)
[2019-07-07] MEDS ORDERED: MORPHINE SULFATE 10 MG/ML INJ IV PRN (11:34)
[2019-07-07] MEDS ORDERED: DIPHENHYDRAMINE HCL 50 MG/ML VIAL IV PRN (11:34)
--- NOTE | 2019-07-07 12:10 | Operative Report ---
Nonrecallable Operative Report DATE OF SURGERY: 07/07/19 PREOPERATIVE DIAGNOSIS: Symptomatic cholelithiasis POSTOPERATIVE DIAGNOSIS: Symptomatic cholelithiasis OPERATION: Laparoscopic cholecystectomy SURGEON: ESTRELLITA DOAN DROPHAMMER OPERATOR: MEHDI FINCH ANESTHESIA: GA TISSUE REMOVED OR ALTERED: Gallbladder COMPLICATIONS: None ESTIMATED BLOOD LOSS: 10 cc INTRAOPERATIVE FINDINGS: See dictation PROCEDURE: After obtaining informed consent, the patient was taken to the operating room. General Anesthesia was induced; the arms were extended, and the abdomen was exposed, and prepped and draped in a sterile fashion. Instrumentation was set up for laparoscopic cholecystectomy. Surgical plan and surgical timeout were conducted. A vertical incision was made above the umbilicus, and a verres needle was inserted uneventfully into the peritoneal cavity. Pneumoperitoneum was established. The verres needle was removed and a 10 mm trocar was inserted and a 10 mm laparoscope was inserted. Visualization of the peritoneal cavity confirmed safe uneventful entry. Under direct visualization 3 additional 5 mm ports were established, one in the subxiphoid position and second in the subcostal position. Visualization of the hepatobiliary anatomy revealed no anatomic variations. A grasper was placed on the fundus of the gallbladder and the gallbladder is elevated over the right surface of the liver; a second grasper was used to grasp the infundibulum of the gallbladder. The neck of the gallbladder and junction with the cystic duct was dissected out. The Cystic artery was in its usual location medial and cephalad to the cystic duct. The cystic artery was surrounded with a right angle clamp, clipped twice proximally and divided with laparoscopic scissors. We now opened the triangle of Calot by dividing the peritoneal reflection on both the medial and lateral sides of the cystic duct infundibular junction. The critical view was obtained. We now milked the cystic duct of any possible stones, clipped the cystic duct approximately 2 times once distally and divided with scissors. The gallbladder was now removed from the undersurface of the liver using hook cautery dissection. Graspers were repositioned and the gallbladder was removed uneventfully from the abdominal cavity through the super umbilical port site incision. The specimen was examined, then passed off to pathology for permanent analysis. We returned to the peritoneal cavity check for bleeding, and evidence of bile leak, and there was none. We Confirmed satisfactory placement of clips on cystic duct and cystic artery were secured . At this point we felt the operat ion was complete. The subcutaneous tissue was then anesthetized with quarter percent Marcaine Sponge and needle counts are correct. All ports removed under direct visualization pneumoperitoneum evacuated, and 5 mm port wounds closed with 3-0 Vicryl suture, benzoin and Steri-Strips. The patient was extubated, and taken to the recovery room in stable condition.
--- NOTE | 2019-07-07 12:11 | Discharge Summary ---
Discharge Summary (SDC) - Discharge Final Diagnosis: Symptomatic cholelithiasis Date of Surgery: 07/07/19 Condition: Good Forms: ASU Anesthesia D/C Instruction, Discharge POC-Surgical Service Referrals: ESTRELLITA FLORENCE MD [ACTIVE STAFF] - Discharge Diet: As Tolerated Discharge Activity: No Lifting Over 10 Pounds Report the Following to Your Physician Immediately: Shortness of Breath, Nausea, Vomiting, Increase in Pain, Yellow Skin - Patient is a follow-up appointment surgery clinic in 7 to 10 days after discharge
[2019-07-07] MEDS: FENTANYL CITRATE INJ/PF 100 MCG/2 ML AMPUL ONE ×4 (12:33→12:48)
[2019-07-07] MEDS ORDERED: OXYCODONE-ACETAMINOPHEN 5-325 MG TABLET ONE (13:19)
[2019-07-07] MEDS ORDERED: SUCCINYLCHOLINE CHLORIDE INJ 200 MG/10 ML VIAL ONE (13:27)
[2019-07-07] MEDS ORDERED: KETOROLAC TROMETHAMINE 60 MG/2 ML SDV ONE (13:27)
[2019-07-07] MEDS ORDERED: ROCURONIUM BROMIDE INJ 50 MG/5 ML VIAL IV ONE (13:27)
[2019-07-07] MEDS ORDERED: DEXAMETHASONE SOD PHOSPHATE INJ 4 MG/1 ML VIAL ONE (13:27)
[2019-07-07] MEDS ORDERED: ONDANSETRON HCL INJ/PF 4 MG/2 ML SDV ONE (13:27)
[2019-07-07 14:41] VITALS: BP 104/60
== END 2019-07-07 14:25 | disposition home or self-care (01) ==
LOC: OROUT 08:13
PROVIDERS: ATTEND Surgery
DX: K80.10 Calculus of gallbladder with chronic cholecystitis without obstruction (principal); Z79.899 Other long term (current) drug therapy; F17.210 Nicotine dependence, cigarettes, uncomplicated
CPT/HCPCS: 86900; 86901; 36415 ×2; 86850; 82150; 84132; 85027; 80076; 80048; 88304 ×2; 00790; 47562; J2250; J0690; J3490 ×3; J1100; J1885; J3010; J0330; J2405; J7060; J2704; 790

== ENCOUNTER 2020-01-21 13:00 | Emergency (ER) | payer MEDICAID, OTHER ==
[2020-01-21 13:07] VITALS: BP 126/83
[2020-01-21] MEDS ORDERED: DEXAMETHASONE SOD PHOS INJ 10 MG/1 ML VIAL IM ONE (13:35)
[2020-01-21] MEDS ORDERED: DIPHENHYDRAMINE HCL 25 MG CAPSULE PO ONE (13:35)
--- NOTE | 2020-01-21 13:38 | ER Document Report ---
HPI - HPI Patient complains to provider of: Skin rash, possible poison genoveva Time Seen by Provider: 01/21/20 13:29 Onset: Other Onset/Duration: Persistent Quality of pain: No pain Severity: None Context: 44-year-old female presents with possible poison genoveva exposure. Reports she did community service last Thursday. She was cleaning bushes, fruit picker bushes. She reports she started having a rash afterwards, is very itchy. She reports she has applied calamine without relief of symptoms. She reports she took a hot shower this morning which made symptoms worsen. She reports she is itching in her sleep. Denies fever vomiting diarrhea. Her friend did drop her off some Benadryl cream but she has not used it yet. She reports she has not used Benadryl either. Associated Symptoms: None Exacerbated by: Other - hot shower Relieved by: Denies Similar symptoms previously: No Recently seen / treated by doctor: No - REPRODUCTIVE Reproductive: DENIES: : Past Medical History - General Information source: Patient - Social History Smoking Status: Current Every Day Smoker Cigarette use (# per day): Yes Frequency of alcohol use: None Drug Abuse: None Lives with: Family Family History: None Patient has suicidal ideation: No Patient has homicidal ideation: No - Past Medical History Cardiac Medical History: Denies: Hx Coronary Artery Disease, Hx Heart Attack, Hx Hypertension Pulmonary Medical History: Reports: Hx Asthma - MILD, Hx Bronchitis Denies: Hx COPD, Hx Pneumonia Neurological Medical History: Denies: Hx Cerebrovascular Accident, Hx Seizures Renal/ Medical History: Reports: Hx Kidney Stones. Denies: Hx Peritoneal Dialysis Musculoskeletal Medical History: Reports Hx Arthritis Psychiatric Medical History: Reports: Hx Depression, Hx Post Traumatic Stress Disorder Past Surgical History: Reports: Hx Appendectomy, Hx Gynecologic Surgery - D&C, Hx Hysterectomy, Hx Oral Surgery - Immunizations Immunizations up to date: Yes Hx Diphtheria, Pertussis, Tetanus Vaccination: Yes Vertical Provider Document - CONSTITUTIONAL Agree With Documented VS: Yes Exam Limitations: No Limitations General Appearance: WD/WN, No Apparent Distress - INFECTION CONTROL TRAVEL OUTSIDE OF THE [place] IN LAST 30 DAYS: No - HEENT HEENT: Atraumatic, Normocephalic. negative: Conjuctival Injection - NECK Neck: Supple - RESPIRATORY Respiratory: Breath Sounds Normal, No Respiratory Distress - CARDIOVASCULAR Cardiovascular: Regular Rate, Regular Rhythm - BACK Back: Normal Inspection - MUSCULOSKELETAL/EXTREMETIES Musculoskeletal/Extremeties: MAEW, FROM, Non-Tender - NEURO Level of Consciousness: Awake, Alert, Appropriate Motor/Sensory: No Motor Deficit - DERM Integumentary: Warm, Dry, Rash - scattered rash to bilateral forearm, left forearm with some linear irritation, scattered rash to bilateral breast, under right breast. no pustules, no vesicles. Patient has 2 sores 1 to each volar wrist. Patient reports she has been scratching Course - Re-evaluation Re-evalutation: 01/21/20 13:54 44-year-old female presents with itchy rash after doing community service outside. Possible poison genoveva exposure. Patient was instructed on protecting her skin cutting her nails avoid itching avoid hot showers. She was also treated with a steroid injection and instructed on Benadryl. She was instructed on signs and symptoms of infection. She verbalized understanding to all instructions. - Vital Signs Vital signs: Temp Pulse Resp BP Pulse Ox 98.3 F 106 H 15 126/83 H 99 01/21/20 13:05 01/21/20 13:05 01/21/20 13:05 01/21/20 13:05 01/21/20 13:05 Discharge - Discharge Clinical Impression: Contact dermatitis due to poison genoveva Condition: Stable Disposition: HOME, SELF-CARE Instructions: Use of Diphenhydramine, Poison Genoveva ([facility]), Steroid Medication Additional Instructions: *You have been treated for itchy rash, suspect poison genoveva exposure *Avoid itching, cut your nails, avoid hot showers, apply cool packs to areas that are really itchy *Monitor your skin for signs of infection such as redness warmth swelling discharge *Take Benadryl as indicated *Follow up with your primary care provider within 1 week for recheck *Return to the emergency department for signs or symptoms of infection, concerns, needs Monitor your blood pressure. Your blood pressure was elevated today. This may be because you were anxious, in pain or because you need medication. It is important to follow up with your primary care provider for full evaluation. Forms: Elevated Blood Pressure Referrals: VANESSA NICOLE DO [NO LOCAL MD] - Follow up in 3-5 days
== END 2020-01-21 13:59 | disposition home or self-care (01) ==
LOC: ER 13:00
DX: L23.7 Allergic contact dermatitis due to plants, except food (principal); F17.210 Nicotine dependence, cigarettes, uncomplicated; J45.909 Unspecified asthma, uncomplicated
CPT/HCPCS: 99283; 96372; J1100

== ENCOUNTER 2020-03-17 15:00 | Emergency (ER) | payer OTHER ==
[2020-03-17] MEDS ORDERED: KETOROLAC TROMETHAMINE INJ/PF 30 MG/1 ML SDV IM ONE (15:19)
[2020-03-17] MEDS ORDERED: OXYCODONE-ACETAMINOPHEN 5-325 MG TABLET PO ONE (15:20)
[2020-03-17] MEDS ORDERED: NORMAL SALINE 1000 ML 1,000 ML IV ONE (15:25)
--- NOTE | 2020-03-17 15:25 | ER Document Report ---
ED Medical Screen (RME) - General Chief Complaint: Trouble Voiding Stated Complaint: FLANK PAIN Time Seen by Provider: 03/17/20 15:12 Primary Care Provider: GREGG,BLEINDA [Primary Care Provider] - Follow up as needed Mode of Arrival: Wheelchair Information source: Patient Notes: 44-year-old female presented to ED for complaint of needing to force herself to urinate. She states she has had no bowel movement in the last 4 days. She states it is very painful when she does go to the bathroom. She states she has had low back pain worse on the left. She states the last time she felt like this she had a bad kidney stone. She does have a history of kidney stones cholecystectomy appendectomy and a hysterectomy. She states she smokes 1/2 pack a day. She states the pain and difficulty urinating and no bowel movements has been for 4 days. I have ordered Toradol, Percocet, blood urine and CT scan. I have greeted and performed a rapid initial assessment of this patient. A comprehensive ED assessment and evaluation of the patient, analysis of test results and completion of medical decision making process will be conducted by an additional ED providers. TRAVEL OUTSIDE OF THE [place] IN LAST 30 DAYS: No - Related Data Allergies/Adverse Reactions: No Known Allergies Allergy (Verified 07/07/19 08:24) Past Medical History - Past Medical History Cardiac Medical History: Denies: Hx Coronary Artery Disease, Hx Heart Attack, Hx Hypertension Pulmonary Medical History: Reports: Hx Asthma - MILD, Hx Bronchitis Denies: Hx COPD, Hx Pneumonia Neurological Medical History: Denies: Hx Cerebrovascular Accident, Hx Seizures Renal/ Medical History: Reports: Hx Kidney Stones. Denies: Hx Peritoneal Dialysis Musculoskeltal Medical History: Reports Hx Arthritis Psychiatric Medical History: Reports: Hx Depression, Hx Post Traumatic Stress Disorder Past Surgical History: Reports: Hx Appendectomy, Hx Gynecologic Surgery - D&C, Hx Hysterectomy, Hx Oral Surgery - Immunizations Immunizations up to date: Yes Hx Diphtheria, Pertussis, Tetanus Vaccination: Yes Physical Exam - Vital signs Vitals: Temp Pulse Resp BP Pulse Ox 98.9 F 117 H 22 H 131/76 H 95 03/17/20 15:08 03/17/20 15:08 03/17/20 15:08 03/17/20 15:08 03/17/20 15:08 Course - Vital Signs Vital signs: Temp Pulse Resp BP Pulse Ox 98.9 F 117 H 22 H 131/76 H 95 03/17/20 15:08 03/17/20 15:08 03/17/20 15:08 03/17/20 15:08 03/17/20 15:08 Doctor's Discharge - Discharge Referrals: [facility] [Primary Care Provider] - Follow up as needed
[2020-03-17 15:56] LABS: ABSOLUTE EOSINOPHILS # (AUTO) 0.2 10^3/uL (0.0-0.6); ABSOLUTE LYMPHOCYTES (AUTO) 2.7 10^3/uL (0.5-4.7); ABSOLUTE MONOCYTES (AUTO) 0.9 10^3/uL (0.1-1.4); ABSOLUTE NEUT (AUTO) 6.8 10^3/uL (1.7-8.2); BASOPHILS % (AUTO) 0.2 % (0-2); HEMATOCRIT 41.6 % (36.0-47.0); HEMOGLOBIN 14.7 g/dL (12.0-15.5); LYMPHOCYTES % (AUTO) 25.2 % (13-45); MEAN CORPUSCULAR HEMOGLOBIN 29.7 pg (27.0-33.4); MEAN CORPUSCULAR HGB CONC 35.2 g/dL (32.0-36.0); MEAN CORPUSCULAR VOLUME 84 fl (80-97); MONOCYTES % (AUTO) 8.8 % (3-13); PLATELET COUNT 318 10^3/uL (150-450); RED BLOOD COUNT 4.93 10^6/uL (3.72-5.28); RED CELL DISTRIBUTION WIDTH 13.3 % (11.5-14.0); SEGMENTED NEUTROPHILS % (AUTO) 63.8 % (42-78); TOTAL CELLS COUNTED % (AUTO) 100 %; WHITE BLOOD COUNT 10.6 10^3/uL (4.0-10.5)
[2020-03-17 16:09] LABS: ALBUMIN 3.8 g/dL (3.5-5.0); ALKALINE PHOSPHATASE 102 U/L (38-126); ANION GAP 6 (5-19); ASPARTATE AMINO TRANSFERASE 56 U/L (14-36); BILIRUBIN,TOTAL 0.3 mg/dL (0.2-1.3); BLOOD UREA NITROGEN 7 mg/dL (7-20); CALCIUM 9.4 mg/dL (8.4-10.2); CARBON DIOXIDE 32 mmol/L (22-30); CHLORIDE 99 mmol/L (98-107); GLUCOSE 150 mg/dL (75-110); POTASSIUM 4.1 mmol/L (3.6-5.0); TOTAL PROTEIN 6.9 g/dL (6.3-8.2)
--- NOTE | 2020-03-17 16:20 | RADIOLOGY REPORT (SQ) ---
EXAM DESCRIPTION: CT ABD/PELVIS NO ORAL OR IV IMAGES COMPLETED DATE/TIME: 03/17/2020 3:59 pm REASON FOR STUDY: Flank pain difficulty urinating COMPARISON: CT abdomen and pelvis 11/06/2017, 05/01/2017. TECHNIQUE: CT scan of the abdomen and pelvis performed without intravenous or oral contrast. Images reviewed with lung, soft tissue, and bone windows. Reconstructed coronal and sagittal MPR images revi ewed. All images stored on PACS. All CT scanners at this facility use dose modulation, iterative reconstruction, and/or weight based d osing when appropriate to reduce radiation dose to as low as reasonably achievable (ALARA). [facility]: Dose Right [facility]: CareDose [facility]: Dose Right [facility]: Teradose 4D [facility]: [employer] RADIATION DOSE: CT Rad equipment meets quality standard of care and radiation dose reduction techniq ues were employed. CTDIvol: 18.8 mGy. DLP: 1049 mGy-cm.mGy. LIMITATIONS: None. FINDINGS: LOWER CHEST: No consolidation or pleural effusion. NON-CONTRASTED LIVER, SPLEEN, ADRENALS: Evaluation limited by lack of IV contrast. No identified sign ificant masses. PANCREAS: No peripancreatic inflammatory changes. GALLBLADDER: Surgically absent. RIGHT KIDNEY AND URETER: Assessment for masses limited by lack of IV contrast. Cluster of small annie cifications at the interpolar region of the right kidney with adjacent cortical scarring is measuring approximately 1.1 cm in length (740 Hounsfield units). No hydronephrosis or hydroureter. No obstr ucting ureteral calculi. LEFT KIDNEY AND URETER: Assessment for masses limited by lack of IV contrast. No significant calcif ications. No hydronephrosis or hydroureter. No obstructing ureteral calculi. AORTA AND RETROPERITONEUM: No abdominal aortic aneurysm. No retroperitoneal masses or hemorrhage. BOWEL AND PERITONEAL CAVITY: No dilated bowel loops or inflammatory changes. Moderate amount of stoo l throughout the colon. No free fluid. APPENDIX: Surgically absent. PELVIS, BLADDER, AND ABDOMINAL WALL:The uterus is surgically absent. No pelvic mass. No free fluid. Bladder partially distended. BONES: Multilevel degenerative changes at the spine. IMPRESSION: 1. Calcifications at the right kidney with adjacent cortical scarring, may represent par enchymal calcifications versus nonobstructing nephrolithiasis. No hydronephrosis or obstructing uret eral calculi. 2. Moderate amount of stool at the colon. COMMENT: Quality ID # [id number]: Final reports with documentation of one or more dose reduction techniques (e.g., Automated exposure control, adjustment of the mA and/or kV according to patient size, use of iterative reconstruction technique) TECHNICAL DOCUMENTATION: JOB ID: [id number] 2010 [employer]- All Rights Reserved Reading location - IP/workstation name: [email or web address]
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
[2020-03-17 18:26] LABS: APPEARANCE,URINE SLIGHTLY-CLOUDY; BILIRUBIN,URINE NEGATIVE (NEGATIVE); CALCIUM OXALATE CRYSTALS,URINE RARE /HPF; COLOR,URINE YELLOW; GLUCOSE, URINE NEGATIVE (NEGATIVE); KETONES,URINE NEGATIVE (NEGATIVE); LEUKOCYTE ESTERASE,URINE TRACE (NEGATIVE); NITRITE,URINE NEGATIVE (NEGATIVE); PROTEIN,URINE NEGATIVE (NEGATIVE); URINE SPECIFIC GRAVITY 1.018
[2020-03-17] MEDS ORDERED: SILVER SULFADIAZINE 1% CREAM 25 GM TP ONE (19:31)
[2020-03-17 19:49] VITALS: BP 130/70
== END 2020-03-17 19:49 | disposition home or self-care (01) ==
LOC: ER 15:00
DX: T21.21XA Burn of second degree of chest wall, initial encounter (principal); R33.9 Retention of urine, unspecified; K59.00 Constipation, unspecified; N20.0 Calculus of kidney; R10.9 Unspecified abdominal pain; X16.XXXA Contact with hot heating appliances, radiators and pipes, initial encounter; J45.909 Unspecified asthma, uncomplicated
CPT/HCPCS: 99284; 96372; 96360; 36415; 87086; 85025; 80053; 81001; 74176; J1885; J7030